=== PATIENT | female | born 1960 ===

== ENCOUNTER 2018-02-06 14:04 | Inpatient (IN) | payer MEDICAID ==
--- NOTE | 2018-02-06 15:13 | ED PDOC ---
Arrival/HPI - General Chief Complaint: Lower Extremity Problem/Injury Time Seen by Provider: 02/06/18 14:40 Historian: Patient - History of Present Illness Narrative History of Present Illness (Text): 02/06/18 15:07 57 y/o female with PMH of HTN, COPD, chronic back pain, HIV, and Thyroid CA who presents to the ED c/o intermittent leg cramping x 2 weeks. Pt states she has been experiencing cramping in her lower extremities 2-3 times a week only at night, relieved by hot water soaks. Cramping starts in feet and moves upwards ending in the buttock. Pain is unilateral but alternates sides. Pt takes Flexeril and Percocet for her back pain, neither of which relieve her leg cramping. 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 She admits to decreased urine output and lightheadedness over the last few days. She has bilateral ankle swelling that she states is her baseline after cancer treatment. Pt not currently being treated for cancer. Denies fever, chills, increased SOB, chest pain, abdominal pain, N/V, diarrhea, headache, frequency, dysuria, hematuria. Symptom Onset: Gradual Symptom Course: Worsening Quality: Cramping Past Medical History - Provider Review Nursing Documentation Reviewed: Yes - Infectious Disease Hx of Infectious Diseases: None - Tetanus Immunization Tetanus Immunization: Unknown - Reproductive Menopause: Yes - Cardiac Hx Hypertension: Yes - Pulmonary Hx Asthma: Yes Hx Chronic Obstructive Pulmonary Disease (COPD): Yes - Neurological Hx Neurological Disorder: No - HEENT Hx HEENT Disorder: No - Renal Hx Renal Disorder: No - Endocrine/Metabolic Hx Hypothyroidism: Yes - Hematological/Oncological Hx AIDS: Yes Hx Cancer: Yes (thyroid) - Integumentary Hx Dermatological Disorder: No - Musculoskeletal/Rheumatological Hx Musculoskeletal Disorders: No - Gastrointestinal Hx Gastrointestinal Disorders: No - Genitourinary/Gynecological Hx Genitourinary Disorders: No - Psychiatric Hx Psychophysiologic Disorder: No Hx Substance Use: No - Surgical History Hx Appendectomy: Yes Hx Section: Yes Hx Gastric Bypass Surgery: Yes (sleeve) Hx Musculoskeletal Surgery: Yes (lamenectomy and fusion) Hx Thyroidectomy: Yes - Anesthesia Hx Anesthesia: Yes Hx Anesthesia Reactions: No Hx Malignant Hyperthermia: No - Suicidal Assessment Feels Threatened In Home Enviroment: No Family/Social History - Physician Review Nursing Documentation Reviewed: Yes Family/Social History: Unknown Family HX Smoking Status: Former Smoker Hx Alcohol Use: No Hx Substance Use: No Hx Substance Use Treatment: No Allergies/Home Meds Allergies/Adverse Reactions: Allergies EGG Allergy (Verified 02/06/18 14:28) ANAPHYLAXIS Home Medications: Home Meds Medication Instructions Recorded Confirmed Cyclobenzaprine HCl [Flexeril] 1 tab PO DAILY 08/15/14 02/06/18 Efavirenz/Emtricitab/Tenofovir 1 tab PO DAILY 08/15/14 02/06/18 [Atripla 600 mg-200 mg-300 mg] Fluticasone Propionate 1 puff INH DAILY 08/03/15 02/06/18 [Fluticasone Propionate] Levothyroxine Sodium 375 mcg PO DAILY 08/03/15 02/06/18 [Levothyroxine Sodium] Cyclobenzaprine [Flexeril] 10 mg PO DAILY 09/21/15 02/06/18 Efavirenz/Emtricitab/Tenofovir 1 tab PO DAILY 09/21/15 02/06/18 [Atripla Tablet] Levothyroxine [Synthroid] 125 mcg PO DAILY 09/21/15 02/06/18 Meloxicam [Mobic] 15 mg PO DAILY 09/21/15 02/06/18 Montelukast [Singulair] 10 mg PO DAILY 09/21/15 02/06/18 Oxycodone HCl/Acetaminophen 1 tab PO Q6H PRN 09/21/15 02/06/18 [Oxycodone-Acetaminophen 5-325] Pantoprazole [Protonix EC Tab] 40 mg PO DAILY 09/21/15 02/06/18 amLODIPine [Norvasc] 5 mg PO DAILY 09/21/15 02/06/18 Review of Systems - Physician Review All systems were reviewed & negative as marked: Yes - Review of Systems Constitutional: Normal. absent: Fevers Eyes: Normal. absent: Vision Changes ENT: Normal. absent: Sore Throat, Rhinorrhea, Sinus Congestion Respiratory: Normal, SOB (COPD pt, mild SOB at baseline), Cough (COPD pt, intermittent coughing at baseline). absent: Sputum Cardiovascular: Normal, Edema (bilateral lower leg edema), Calf Pain ( intermittent cramping calf pain), Orthopnea (COPD pt, orthopnea at baseline). absent: Chest Pain, Palpitations, Syncope Gastrointestinal: Normal. absent: Abdominal Pain, Nausea, Vomiting Genitourinary Female: Normal, Urine Output Changes (decreased). absent: Dysuria , Frequency, Hematuria Musculoskeletal: Back Pain (s/p injury 2004), Neck Pain (s/p injury 2004), Myalgias (intermittent in feet, calves, thighs, and buttock). absent: Arthralgias, Joint Swelling Skin: Normal. absent: Rash, Skin Lesions, Abscess, Cellulitis Neurological: Normal, Dizziness (lightheadedness). absent: Headache, Focal Weakness, Speech Changes, Disequilibrium Physical Exam Vital Signs Reviewed: Yes Vital Signs Temp Pulse Resp BP Pulse Ox 02/06/18 14:05 98.7 F 81 18 122/55 L 100 Temperature: Afebrile Blood Pressure: Normal Pulse: Regular Respiratory Rate: Normal Appearance: Positive for: Well-Appearing, Non-Toxic, Comfortable Pain Distress: None Mental Status: Positive for: Alert and Oriented X 3 - Systems Exam Head: Present: Atraumatic, Normocephalic Conjunctiva: Present: Normal Mouth: Present: Dry Respiratory/Chest: Present: Decreased Breath Sounds, Rhonchi. No: Respiratory Distress, Accessory Muscle Use, Wheezes, Rales Cardiovascular: Present: Regular Rate and Rhythm, Normal S1, S2, Peripheal Pulses Present. No: Murmurs Abdomen: Present: Normal Bowel Sounds. No: Tenderness, Distention, Peritoneal Signs Rectal: Present: Occult Blood, Normal Rectal Tone. No: Rectal Tenderness, Gross Blood, Hemorrhoids, Fissures, Nodule/Mass/Lesions Back: No: CVA Tenderness Upper Extremity: Present: NORMAL PULSES, Capillary Refill < 2s Lower Extremity: Present: Edema, CALF TENDERNESS (mild right-sided calf tenderness), NORMAL PULSES, Normal ROM, Tenderness (tenderness over left anterior distal tibia ), Swelling (bilateral edema in feet and lower legs), Capillary Refill < 2 s. No: Cyanosis, Genet's Sign, Erythema, Deformity, Temperature Abnormalties Neurological: Present: GCS=15 Skin: Present: Warm, Dry, Normal Color. No: Rashes Psychiatric: Present: Alert, Oriented x 3, Normal Insight, Normal Concentration Medical Decision Making ED Course and Treatment: 02/06/18 15:19 57 y/o female with PMH of HTN, COPD, chronic back pain, and Thyroid CA who presents to the ED c/o intermittent leg cramping x 2 weeks. Pt states she has been experiencing cramping in her lower extremities 2-3 times a week only at night, relieved by hot water soaks. Cramping starts in feet and moves upwards ending in the buttock. Pain is unilateral but alternates sides. 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 She admits to decreased urine output over the last few days. She has bilateral ankle swelling that she states is her baseline after cancer treatment. Denies fever, chills, increased SOB, chest pain, abdominal pain, N/V, diarrhea, headache, frequency, dysuria, hematuria. Physical exam reveals normal vitals; bilateral lower leg edema; right calf tenderness; tenderness over left distal tibia; lungs clear; no abdominal tenderness. Will get labs (CBC, CMP, UA + culture) Will get US b/l lower extremities to r/o DVT 02/06/18 17:43 CBC significant for: YARELY (Creat 1.7, BUN 35) low hemoglobin (9.8) - guiac positive stool UA positive for trace leuk esterase and WBC -will treat with 1g Rocephin IV CMP shows: low potassium (2.9) -will give 40mg potassium chloride PO US results pending. Case discussed with Dr. Willson, who recommends admit for observation to med/ surg with diagnosis of hypokalemia and renal insufficiency for rehydration and monitoring of kidney function. Spoke with hospitalist Dr. Gianluca Robison who accepted the admission to med/surg observation Re-evaluation Time: 18:09 Reassessment Condition: Unchanged - Lab Interpretations Lab Results: 02/06/18 15:17 02/06/18 15:17 Lab Results 02/06/18 15:20: Urine Color Yellow, Urine Appearance Sl cloudy, Urine pH 6.5, Ur Specific [place] 1.015, Urine Protein Trace H, Urine Glucose (UA) Negative, Urine Ketones Negative, Urine Blood Negative, Urine Nitrate Negative, Urine Bilirubin Negative, Urine Urobilinogen 0.2, Ur Leukocyte Esterase Trace H, Urine RBC Negative, Urine WBC 15 - 20, Ur Epithelial Cells 10 - 12, Urine Bacteria Mod, Hyaline Casts 2 - 5, Coarse Granular Casts Small H 02/06/18 15:17: TSH 3rd Generation 0.05 L 02/06/18 15:17: Sodium 137, Potassium 2.9 L*, Chloride 90 L, Carbon Dioxide 37 H , Anion Gap 13, BUN 35 H, Creatinine 1.7 H, Est GFR ( Amer) 38, Est GFR ( Non-Af Amer) 31, Random Glucose 101, Calcium 7.6 L, Total Bilirubin 0.5, AST 34 , ALT 20, Alkaline Phosphatase 63, Total Creatine Kinase 97, Total Protein 8.0, Albumin 4.3, Globulin 3.7, Albumin/Globulin Ratio 1.1 02/06/18 15:17: WBC 8.2, RBC 3.76, Hgb 9.8 L, Hct 30.7 L, MCV 81.6, MCH 26.1, MCHC 31.9, RDW 13.7, Plt Count 413, MPV 9.6, Gran % 77.9 H, Lymph % (Auto) 10.0 L, [place] % (Auto) 10.1 H, Eos % (Auto) 1.3 L, Baso % (Auto) 0.7, Gran # 6.37, Lymph # (Auto) 0.8 L, [place] # (Auto) 0.8 H, Eos # (Auto) 0.1, Baso # (Auto) 0.06 - RAD Interpretation Radiology Orders: 02/06/18 15:13 DUPLEX LOWER EXTRM VEIN BILAT [US] Stat - Medication Orders Current Medication Orders: Discontinued Medications Sodium Chloride (Sodium Chloride 0.9%) 1,000 mls @ 999 mls/hr IV .Q1H1M STA Stop: 02/06/18 18:01 Last Admin: 02/06/18 17:22 Dose: 999 mls/hr eMAR Start Stop Document 02/06/18 17:22 EQ (Rec: 02/06/18 17:22 EQ [id number]) Intravenous Solution Start Date 02/06/18 Start Time 17:22 Ceftriaxone Sodium (Rocephin 1 Gram Ivpb) 1 gm in 100 mls @ 100 mls/hr IVPB STAT STA PRN Reason: Protocol Stop: 02/06/18 18:49 Last Admin: 02/06/18 18:26 Dose: 100 mls/hr eMAR Start Stop Document 02/06/18 18:26 EQ (Rec: 02/06/18 18:26 EQ [id number]) Intravenous Solution Start Date 02/06/18 Start Time 18:26 Potassium Chloride (K-Dur 20 Meq Er Tab) 40 meq PO STAT STA Stop: 02/06/18 16:30 Last Admin: 02/06/18 16:46 Dose: 40 meq Potassium Chloride (K-Dur 20 Meq Er Tab) 40 meq PO STAT STA Stop: 02/06/18 18:33 Last Admin: 02/06/18 18:57 Dose: 40 meq Disposition/Present on Arrival - Present on Arrival Any Indicators Present on Arrival: No History of DVT/PE: No History of Uncontrolled Diabetes: No Urinary Catheter: No History of Decub. Ulcer: No History Surgical Site Infection Following: None - Disposition Have Diagnosis and Disposition been Completed?: Yes Diagnosis: Renal insufficiency, Hypokalemia, UTI (urinary tract infection) Disposition: HOSPITALIZED Disposition Time: 18:00 Patient Plan: Observation Patient Problems: Current Active Problems Problem Status Onset Renal insufficiency Acute Hypokalemia Acute UTI (urinary tract infection) Acute Condition: GOOD
[2018-02-06 15:32] LABS: BASO # 0.06 K/mm3 (0.0-2.0); BASO % 0.7 % (0.0-3.0); EOS # 0.1 (0.0-0.7); EOS % 1.3 % (1.5-5.0); GRAN # 6.37 (1.4-6.5); GRAN % 77.9 % (50.0-68.0); HEMOGLOBIN 9.8 g/dL (12.0-16.0); LYMPH # 0.8 (1.2-3.4); MEAN CELL VOLUME 81.6 fl (80.0-105.0); MEAN CORPUSCULAR HEMOGLOBIN 26.1 pg (25.0-35.0); MEAN CORPUSCULAR HGB CONC 31.9 g/dl (31.0-37.0); MEAN PLATELET VOLUME 9.6 fl (7.0-11.0); MONO # 0.8 (0.1-0.6); MONO % 10.1 % (1.0-6.0); RBC 3.76 10^6/uL (3.5-6.1); RED CELL DISTRIBUTION WIDTH 13.7 % (11.5-14.5); WHITE BLOOD COUNT 8.2 10^3/ul (4.5-11.0)
[2018-02-06 15:45] LABS: PH,URINE 6.5 (4.7-8.0); URINE BILIRUBIN NEGATIVE (NEGATIVE); URINE BLOOD NEGATIVE (NEGATIVE); URINE GLUCOSE (UA) NEGATIVE (NEGATIVE); URINE LEUKOCYTE ESTERASE TRACE Leu/uL (NEGATIVE); URINE PROTEIN TRACE mg/dL (<30 mg/dL); URINE UROBILINOGEN 0.2 E.U./dL (<1 E.U./dL)
[2018-02-06 15:48] LABS: URINE COLOR YELLOW (YELLOW)
[2018-02-06 15:57] LABS: URINE APPEARANCE SL CLOUDY (CLEAR); URINE RBC NEGATIVE /hpf (0-2)
[2018-02-06 15:58] LABS: URINE BACTERIA MOD (NEG); URINE COARSE GRANULAR CAST SMALL /hpf (0-2); URINE WBC 15 - 20 /hpf (0-6)
[2018-02-06 16:14] LABS: ALB/GLOB RATIO 1.1 (1.1-1.8); ALBUMIN 4.3 g/dL (3.0-4.8); CALCIUM 7.6 mg/dL (8.4-10.5)
[2018-02-06] MEDS ORDERED: Potassium Chloride 20 mEq ER Tab PO STA ×2 (16:29→18:32)
[2018-02-06] MEDS ORDERED: Sodium Chloride 0.9% 1,000 ML IV STA (17:01)
[2018-02-06] MEDS ORDERED: cefTRIAXone 1 gm 1 GM/100 ML BAG IVPB STA (17:50)
[2018-02-06] MEDS ORDERED: Albuterol-Ipratrop 3 mg / 0.5 (3 ml) UD IH PRN (20:51)
[2018-02-06] MEDS: Sodium Chloride 0.9% 1,000 ML IV SCH (21:14)
[2018-02-06 21:32] LABS: FREE T4 2.87 ng/dL (0.78-2.19); T4 13.9 ug/dL (5.5-11.0)
[2018-02-06 22:51] VITALS: BMI 24.9
[2018-02-06] MEDS ORDERED: Fluticasone-Salmeterol 250-50mcg Diskus IH SCH (23:00)
[2018-02-06] MEDS ORDERED: Budesonide 0.5 mg/2 ml Inhal Susp UD IH ONE (23:15)
[2018-02-06] MEDS ORDERED: Arformoterol 15 mcg/2 ml Inh Sol IH ONE (23:15)
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
[2018-02-07 00:34] LABS: ALB/GLOB RATIO 1.1 (1.1-1.8); ALBUMIN 4.2 g/dL (3.0-4.8); CALCIUM 7.2 mg/dL (8.4-10.5)
--- NOTE | 2018-02-07 03:45 | CON ---
DATE: 02/06/2018 LOCATION: Room 566. HISTORY OF PRESENT ILLNESS: This is a 57-year-old female with known history of thyroid carcinoma on high-dose levothyroxine suppressive therapy, presenting here with lower extremity cramping and associated hypokalemia and is now being referred for endocrine evaluation and management. PAST MEDICAL HISTORY: As mentioned above, history of thyroid carcinoma with subsequent total thyroidectomy and has been on a high-dose levothyroxine suppressive therapy, currently on a 375 mcg dose once a day as noted. History of hypertension and dyslipidemia, history of chronic obstructive lung disease with prior history of nicotine dependence. History of lumbar disc disease and chronic low back pain, currently on narcotic analgesics and muscle relaxants given on the outpatient. She has previous laminectomy and lumbar fusion surgery a few years ago with persistent lower back pain as mentioned, history of HIV/AIDS, on antiretroviral therapy as noted. History of morbid obesity and underwent a sleeve gastrectomy also few years ago. PAST SURGICAL HISTORY: She also had previous appendectomy and C-sections as noted. FAMILY HISTORY: Positive for hypertension and heart disease. SOCIAL HISTORY: The patient has supportive family. Admits to previous history of smoking, but quit a few years ago. No other illicit drug use. REVIEW OF SYSTEMS: As mentioned above. Admits to generalized body weakness with episodic bouts of bifrontal headaches and progressive bouts of dizziness and lightheadedness worse on the day of admission. No chest pains, but admits to occasional bouts of palpitations and shortness of breath, especially on exertion. Her oral intake is variable with nausea and dyspepsia and vague abdominal pains. Also admits to severe low back pain with radiculopathy. Also admits to recent lower extremity cramping and leg pain, right greater than left with lower extremity edema which is actually of chronic nature. PHYSICAL EXAMINATION: GENERAL: This is an average built female in no apparent distress. VITAL SIGNS: Blood pressure of 140/80, pulse of 100 beats per minute regular, temperature 98, respirations 20, height is 5 feet 4 inches, weight is 145 pounds. HEENT: Head normocephalic. Eyes anicteric with pink conjunctivae. Funduscopy not possible at this time. Ears, nose and throat otherwise normal. NECK: Supple. The thyroid gland is not palpable with a flat thyroid bed and no palpable nodules. No cervical adenopathy as noted. CARDIOPULMONARY: Some adynamic precordium. S1, S2 is rapid and regular. LUNGS: Clear to auscultation. ABDOMEN: Flat, soft with positive bowel sounds. EXTREMITIES: +2 bipedal edema. Pulses are +2 bilaterally. LABORATORY DATA: Her chemistry showed a BUN of 35, sodium 137, potassium 2.9, chloride 90, CO2 of 37, glucose 101 and creatinine 1.7. Her T4 is 13.9 with a free T4 of 2.87 and TSH of 0.05. 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 The biggest concern also would be further long-term metabolic effects and there is high risk for osteoporosis from increased bone resorption as noted thereof. Also there is always a possibility of predisposing patients for cardiac tachyarrhythmias with over replacement of levothyroxine suppressive therapy. Plan of management, we will hold off the initiation of levothyroxine for few days as it takes 5-7 days for full therapeutic washout of the levothyroxine medications as given. We will obtain serial chemistries and serial thyroid studies and determine the need to resume her levothyroxine medications accordingly at clearly a much lower dosing regimen. We will obtain a thyroglobulin quantitative level as a followup thyroid cancer marker. We will also obtain serial chemistries and supplement accordingly as needed. We will follow. Fallon Gottlieb MD
[2018-02-07] MEDS ORDERED: Potassium Chloride 20 mEq ER Tab PO ONE ×3 (05:50→18:00)
[2018-02-07] MEDS ORDERED: Pantoprazole 20 mg EC Tab PO SCH (06:00)
[2018-02-07] MEDS: Sodium Chloride 0.9% 1,000 ML IV SCH (06:15)
[2018-02-07] MEDS: Arformoterol 15 mcg/2 ml Inh Sol IH SCH ×2 (07:37→19:22)
[2018-02-07] MEDS: Budesonide 0.5 mg/2 ml Inhal Susp UD IH SCH (07:37)
[2018-02-07] MEDS: Oxycodone/Acetaminophen 5/325 mg Tab PO PRN ×2 (07:48→23:14)
[2018-02-07 08:11] LABS: BASO # 0.04 K/mm3 (0.0-2.0); BASO % 0.6 % (0.0-3.0); EOS # 0.1 (0.0-0.7); EOS % 1.9 % (1.5-5.0); GRAN # 4.84 (1.4-6.5); GRAN % 70.2 % (50.0-68.0); HEMOGLOBIN 8.9 g/dL (12.0-16.0); LYMPH # 1.1 (1.2-3.4); LYMPH % 15.4 % (22.0-35.0); MEAN CELL VOLUME 82.2 fl (80.0-105.0); MEAN CORPUSCULAR HGB CONC 31.7 g/dl (31.0-37.0); MEAN PLATELET VOLUME 9.6 fl (7.0-11.0); MONO # 0.8 (0.1-0.6); MONO % 11.9 % (1.0-6.0); RBC 3.42 10^6/uL (3.5-6.1); RED CELL DISTRIBUTION WIDTH 13.9 % (11.5-14.5); WHITE BLOOD COUNT 6.9 10^3/ul (4.5-11.0)
[2018-02-07 08:34] LABS: ALB/GLOB RATIO 1.1 (1.1-1.8); ALBUMIN 3.4 g/dL (3.0-4.8); ALT/SGPT 21 U/L (7-56); AST/SGOT 27 U/L (14-36); BLOOD UREA NITROGEN 20 mg/dL (7-21); CALCIUM 6.5 mg/dL (8.4-10.5); GFR NON-AFRICAN AMERICAN 58
[2018-02-07 09:01] LABS: FREE T4 2.18 ng/dL (0.78-2.19); T4 11.7 ug/dL (5.5-11.0)
[2018-02-07] MEDS: Efavirenz/Emtricitabine/Teno 1 TAB PO SCH ×2 (09:32→09:41)
[2018-02-07] MEDS: Pantoprazole 40 mg EC Tab PO SCH ×2 (09:33→09:40)
[2018-02-07] MEDS ORDERED: Magnesium Sulfate 2 gm/50 ml 2 GM/50 ML BAG IVPB ONE (11:46)
--- NOTE | 2018-02-07 12:08 | US ---
HISTORY: Leg pain and swelling. Evaluate for DVT PHYSICIAN(S): Sp Austin MD. TECHNIQUE: Duplex sonography and color-flow Doppler with graded compression were used to evaluate the deep venous systems of both lower extremities. The exam is somewhat limited by edema FINDINGS: The visualized deep venous systems of both lower extremities are sonographically normal and compressible. Normal wave forms and augmentation are seen. There is no sonographic evidence for deep venous thrombosis in the visualized segments of both lower extremities. IMPRESSION: No sonographic evidence for deep venous thrombosis in the visualized segments of both lower extremities.
--- NOTE | 2018-02-07 12:28 | CP.PCM.PN ---
Subjective - Date & Time of Evaluation Date of Evaluation: 02/07/18 Time of Evaluation: 12:03 - Subjective Subjective: PGY-1 Progress Note For: Dr. Gottlieb Pt was seen and examined this AM at bedside. Pt continues to admit to cramping pain in the legs and hips b/l. She denies any confusion, fatigue, numbness, tingling, dysphagia, irritability, depression, tremors, coarse hair, brittle nails, or dry skin. She is tolerating her diet and denies any other acute complaints at this time. Objective - Vital Signs/Intake and Output Vital Signs (last 24 hours): Temp Pulse Resp BP Pulse Ox 98.3 F 88 20 125/85 99 02/07/18 08:00 02/07/18 09:32 02/07/18 08:00 02/07/18 09:32 02/07/18 08:00 Intake and Output: 02/07/18 02/07/18 06:59 18:59 Intake Total 1680 Balance 1680 - Medications Medications: Current Medications Albuterol/Ipratropium (Duoneb 3 Mg/0.5 Mg (3 Ml) Ud) 3 ml IH Q6 PRN PRN Reason: Shortness of Breath Amlodipine Besylate (Norvasc) 5 mg PO DAILY [facility] Last Admin: 02/07/18 09:32 Dose: 5 mg Arformoterol Tartrate (Brovana) 15 mcg IH [id number] [facility] Last Admin: 02/07/18 07:37 Dose: 15 mcg Budesonide (Pulmicort Respules) 0.5 mg IH [id number] [facility] [place] Last Admin: 02/07/18 07:37 Dose: 0.5 mg Calcium Carbonate (Caltrate) 600 mg PO DAILY [facility] [place] Last Admin: 02/07/18 09:32 Dose: 600 mg Cyclobenzaprine HCl (Flexeril) 10 mg PO DAILY [facility] [place] Last Admin: 02/07/18 09:33 Dose: 10 mg Efavirenz/Emtricitabine/Tenofovir (Atripla 600 Mg-200 Mg-300 Mg) 1 tab PO DAILY [facility] PRN Reason: Protocol Last Admin: 02/07/18 09:41 Dose: Not Given Heparin Sodium (Porcine) (Heparin) 5,000 units SC Q12 CAROLYN PRN Reason: Protocol Last Admin: 02/07/18 09:41 Dose: Not Given Potassium Chloride 40 meq/ (Sodium Chloride) 1,020 mls @ 100 mls/hr IV .[id number] [facility] Last Admin: 02/07/18 09:13 Dose: 100 mls/hr Magnesium Sulfate (Magnesium Sulfate 2 Gm/50 Ml Water) 2 gm in 50 mls @ 50 mls/ hr IVPB ONCE ONE Stop: 02/07/18 12:45 Meloxicam (Mobic) 15 mg PO DAILY PRN PRN Reason: Pain, moderate (4-7) Montelukast Sodium (Singulair) 10 mg PO DAILY [facility] [place] Last Admin: 02/07/18 09:33 Dose: 10 mg Oxycodone/Acetaminophen (Percocet 5/325 Mg Tab) 1 tab PO Q6H PRN PRN Reason: Pain, moderate (4-7) Stop: 02/09/18 22:47 Last Admin: 02/07/18 07:48 Dose: 1 tab Pantoprazole Sodium (Protonix Ec Tab) 40 mg PO DAILY [facility] [place] Last Admin: 02/07/18 09:40 Dose: Not Given - Labs Labs: 02/07/18 07:30 02/07/18 07:30 - Constitutional Appears: Well, Non-toxic, No Acute Distress - Head Exam Head Exam: ATRAUMATIC, NORMAL INSPECTION, NORMOCEPHALIC - Eye Exam Eye Exam: EOMI, Normal appearance, PERRL - ENT Exam ENT Exam: Mucous Membranes Moist, Normal Exam - Respiratory Exam Respiratory Exam: Clear to Ausculation Bilateral, NORMAL BREATHING PATTERN. absent: Accessory Muscle Use, Decreased Breath Sounds, Rales, Rhonchi, Wheezes - Cardiovascular Exam Cardiovascular Exam: REGULAR RHYTHM, +S1, +S2. absent: Tachycardia - GI/Abdominal Exam GI & Abdominal Exam: Soft, Normal Bowel Sounds. absent: Distended, Firm, Guarding, Tenderness - Extremities Exam Extremities Exam: Full ROM, Normal Inspection. absent: Calf Tenderness, Pedal Edema Additional comments: [place] sign was negative, as was trousseau sign - Neurological Exam Neurological Exam: Alert, Awake, Oriented x3 - Psychiatric Exam Psychiatric exam: Normal Affect, Normal Mood - Skin Skin Exam: Dry, Intact, Normal Color, Warm Assessment and Plan - Assessment and Plan (Free Text) Assessment: Pt is a 57 yo F with pmhx of HIV, COPD, HTN, and thyroid ca s/p radiation treatment who we are consulted for hypocalcemia, thyroid function abnormalities and hx of thyroid ca. She is currently being supplemented with 600mg calcium gluconate, but her Ca levels dropped more to 6.5 from 7.2. Her TSH is also suppressed to .5 and T4 = 13.9. This is due to TSH suppresion in the presence of thyroid ca. - We will continue to hold off levothyroxine for a few days to allow some washout and begin pt on a slightly lower dose of levothyroxine. - Will continue to follow and replete Ca++ as needed - Will add calcitriol - Continue to monitor all electrolytes - Will continue to follow Discussed with Dr. Bull Green PGY1
[2018-02-07] MEDS ORDERED: Potassium Chloride 20 mEq ER Tab PO STA (13:26)
--- NOTE | 2018-02-07 16:38 | PN ---
DATE: 02/07/2018 ENDO FOLLOWUP NOTE LOCATION: In room 566. SUBJECTIVE: This is a 57-year-old female with known history of surgical hypothyroidism and possibly even hypoparathyroidism, presenting here with severe lower extremity cramping and was found to have marked hypokalemia and also hypocalcemia as noted thereof. She received her potassium and calcium supplementation as given dose parenterally and orally as noted thereof. Her latest chemistries today showed a BUN of , sodium 139, potassium 3, chloride 96, CO2 of 35, glucose 88 and creatinine 1. Her calcium level is now reported as 6.5 with an albumin level of 3.4 and a corrected calcium of 7.1 mg/dL. Her thyroxine value showed a T4 of 11.7 with a free T4 of 2.18 and a TSH of 0.08. Her serum cortisol level is 6.9 mcg/dL. ASSESSMENT: This is a 57-year-old female with symptomatic hypokalemia with associated history of hypertension and now supervening hyperthyroxinemia with possible high-dose levothyroxine replacement therapy. She also has moderate hypocalcemia related to possible surgical hypoparathyroidism and subsequent hypocalcemia as noted thereof. We will continue the calcium carbonate replacement therapy as given and we will also restart a much lower dose of levothyroxine as at least 200 mcg daily and we will titrate incrementally as indicated to optimize metabolic control. We will also continue the magnesium supplementation as given. Moreover, we will start her also on vitamin D analogues with calcitriol given as 0.5 mcg b.i.d. to start today as ordered. We will titrate incrementally as indicated to optimize metabolic control. She has been advised to follow up with her customer agent in the outpatient, Dr. Gary Mendoza, who is her local customer agent, who can further ascertain the exact dose adjustments. Especially with underlying thyroid cancer, we have to aim for suppressed TSH level to optimize the thyroid requirements and also to prevent further recurrence of the aforementioned cancer process. We will obtain serial chemistries and supplement accordingly as needed. We will follow. Fallon Gottlieb MD
[2018-02-07] MEDS: Magnesium Oxide 400 mg Tab UD PO SCH (17:38)
--- NOTE | 2018-02-07 17:56 | CP.PCM.PN ---
<Paul Godwin - Last Filed: 02/07/18 17:53> Subjective - Date & Time of Evaluation Date of Evaluation: 02/07/18 Time of Evaluation: 07:00 - Subjective Subjective: Paul Godwin, PGY1 Medicine Progress Note for Dr. Landeros Patient was seen and examined at bedside this morning. She was complaining of bilateral headaches and lower extremity muscle cramps that were worsening. She says that she usually drinks 1 L water a day but doesn't hydrate well at work. Denies n/v/d, numbness and tingling of the extremities. Vital signs are stable. A full 12 point ROS was conducted and unremarkable except as stated above. Objective - Vital Signs/Intake and Output Vital Signs (last 24 hours): Temp Pulse Resp BP Pulse Ox 97.5 F L 83 20 115/64 99 02/07/18 14:41 02/07/18 14:41 02/07/18 14:41 02/07/18 14:41 02/07/18 14:41 Intake and Output: 02/07/18 02/07/18 06:59 18:59 Intake Total 1680 600 Balance 1680 600 - Medications Medications: Current Medications Albuterol/Ipratropium (Duoneb 3 Mg/0.5 Mg (3 Ml) Ud) 3 ml IH Q6 PRN PRN Reason: Shortness of Breath Amlodipine Besylate (Norvasc) 10 mg PO DAILY [facility] Arformoterol Tartrate (Brovana) 15 mcg IH [id number] [facility] Last Admin: 02/07/18 07:37 Dose: 15 mcg Budesonide (Pulmicort Respules) 0.5 mg IH [id number] [facility] Last Admin: 02/07/18 07:37 Dose: 0.5 mg Calcitriol (Rocaltrol) 0.5 mcg PO BID [facility] Last Admin: 02/07/18 17:38 Dose: 0.5 mcg Calcium Carbonate (Caltrate) 600 mg PO DAILY [facility] Last Admin: 02/07/18 09:32 Dose: 600 mg Cyclobenzaprine HCl (Flexeril) 10 mg PO DAILY [facility] Last Admin: 02/07/18 09:33 Dose: 10 mg Diphenhydramine HCl (Benadryl) 50 mg PO HS PRN PRN Reason: Insomnia Heparin Sodium (Porcine) (Heparin) 5,000 units SC Q12 CAROLYN PRN Reason: Protocol Last Admin: 02/07/18 09:41 Dose: Not Given Home Med (Home Med) 1 unit PO DAILY [facility] Potassium Chloride 40 meq/ (Sodium Chloride) 1,020 mls @ 100 mls/hr IV .[id number] [facility] Last Admin: 02/07/18 09:13 Dose: 100 mls/hr Levothyroxine Sodium (Synthroid) 200 mcg PO 0600 [facility] Magnesium Oxide (Mag-Ox) 400 mg PO BID [facility] Last Admin: 02/07/18 17:38 Dose: 400 mg Meloxicam (Mobic) 15 mg PO DAILY PRN PRN Reason: Pain, moderate (4-7) Montelukast Sodium (Singulair) 10 mg PO DAILY [facility] Last Admin: 02/07/18 09:33 Dose: 10 mg Oxycodone/Acetaminophen (Percocet 5/325 Mg Tab) 1 tab PO Q6H PRN PRN Reason: Pain, moderate (4-7) Stop: 02/09/18 22:47 Last Admin: 02/07/18 07:48 Dose: 1 tab Pantoprazole Sodium (Protonix Ec Tab) 40 mg PO DAILY [facility] Last Admin: 02/07/18 09:40 Dose: Not Given Potassium Chloride (K-Dur 20 Meq Er Tab) 20 meq PO ONCE ONE Stop: 02/07/18 18:01 Last Admin: 02/07/18 17:38 Dose: 20 meq - Labs Labs: 02/07/18 07:30 02/07/18 07:30 - Constitutional Appears: Well, No Acute Distress - Head Exam Head Exam: ATRAUMATIC, NORMAL INSPECTION, NORMOCEPHALIC - Eye Exam Eye Exam: EOMI, Normal appearance, PERRL - ENT Exam ENT Exam: Mucous Membranes Moist, Normal Exam - Neck Exam Neck Exam: Full ROM, Normal Inspection. absent: Lymphadenopathy - Respiratory Exam Respiratory Exam: Clear to Ausculation Bilateral, NORMAL BREATHING PATTERN. absent: Rales, Rhonchi, Wheezes, Respiratory Distress - Cardiovascular Exam Cardiovascular Exam: REGULAR RHYTHM, +S1, +S2. absent: Murmur - GI/Abdominal Exam GI & Abdominal Exam: Soft, Normal Bowel Sounds. absent: Tenderness - Extremities Exam Extremities Exam: Full ROM, Normal Capillary Refill, Normal Inspection. absent : Joint Swelling, Pedal Edema - Back Exam Back Exam: NORMAL INSPECTION - Neurological Exam Neurological Exam: Alert, Awake, CN II-XII Intact, Normal Gait, Oriented x3 Neuro motor strength exam: Left Upper Extremity: 5, Right Upper Extremity: 5, Left Lower Extremity: 5, Right Lower Extremity: 5 - Psychiatric Exam Psychiatric exam: Normal Affect, Normal Mood - Skin Skin Exam: Dry, Intact, Normal Color, Warm Assessment and Plan - Assessment and Plan (Free Text) Assessment: Patient is a 57 year old female with PMH of HIV (CD4 count in the 500s as per patient), COPD, HTN, chronic back pain, thyroid cancer (s/p radiation therapy on 12/01/17) presenting to the ED for bilateral leg cramping. Patient was admitted to med/surg for electrolyte abnormalities, YARELY, and abnormal thyroid levels. Plan: LE muscle cramps likely 2/2 electrolyte abnormalities -K is now 2.7; repleted -Ca is now 6.5; repleted -Mg is now 1.4; repleted -K of 2.9 on admission, given 80mEQ KCl in ED. -urine aldosterone, plasma aldosterone/renin pending -continue NS @ 100cc/hr -LE duplex negative for DVT -EKG: NSR. No acute ST or T wave changes. Surgical Hypothyroidism with Possible Surgical Hypoparathyroidism -Spoke to patient's environmental protection forester (Dr. Gary Olivares): recommendations were to c /w Levothyroxin at 200 mcg daily. -Hypocalcemia related to loss of parathyroid glands; replete Ca++ as needed -s/p radiation ablation 131 therapy on 12/01/17 -elevated T4, low TSH. -Endo on consult, Dr. Gottlieb. Appreciated Recs. -cortisol, PTH, ACTH, thyroglobulin pending -thyroid nuclear scan on 11/26/17 showed no findings to suggest metastatic disease YARELY - improving -Trending downwards, now BUN/Cr is 26/1.3 -likely 2/2 dehydration and low volume. BUN/Cr >20:1 -continue NS @ 100cc/hr Normocytic Anemia -Hg of 9.8 on admission, baseline of 11 -will monitor -No active bleeding History of HIV -follows Dr. Willard. Last seen two months, will see later this month -Per patient, viral load is undetectable and CD4 is in the 500s -YARELY likely not 2/2 HIV nephropathy but need records from Dr. Willard's office to definitively rule out -currently triple therapy HIV treatment Chronic Back pain -continue home pain meds COPD -continue binta wright singulair HTN -currently normotensive -continue home norvasc PPX with heparin and protonix Dispo: Continue to monitor patient on the floor. Case was discussed and reviewed with Attending Physician, Dr. Landeros. <Wayne Landeros - Last Filed: 02/10/18 07:49> Objective - Vital Signs/Intake and Output Vital Signs (last 24 hours): Temp Pulse Resp BP Pulse Ox 98.8 F 88 18 122/70 97 02/09/18 14:00 02/09/18 14:00 02/09/18 14:00 02/09/18 15:26 02/09/18 14:00 Intake and Output: 02/10/18 02/10/18 06:59 18:59 Intake Total 420 Balance 420 - Labs Labs: 02/09/18 06:30 02/09/18 06:30 Attending/Attestation - Attestation I have personally seen and examined this patient.: Yes I have fully participated in the care of the patient.: Yes I have reviewed all pertinent clinical information, including history, physical exam and plan: Yes Notes (Text): 02/10/18 07:45 Attending note; Patient seen and examined with resident. Patient is complaining of leg cramps. Denies any fevers, chills. Denies any nausea, vomiting. Denies any chest pain, shortness of breath. Tolerating diet well. Patient is a 57 year old female with PMH of HIV (CD4 count in the 500s as per patient), COPD, HTN, chronic back pain, thyroid cancer (s/p radiation therapy on 12/01/17), on Synthroid is admitted with bilateral leg cramping. Patient is admitted for severe hypokalemia, hypomagnesemia and hypocalcemia. Hypokalemia; started on IV and po potassium supplementation. Hypomagnesemia; continue IV magnesium. Hypocalcemia; continue IV calcium gluconate. Mostly electrolyte abnormalities associated post thyroid surgery. Patient is also getting radioactive iodine treatment with endocrinology. Case discussed with Dr. shane in detail. Continue Synthroid. Continue electrolyte supplementation. HIV; continue genvoya. Follow-up with Dr. Baxter as outpatient. Upon discharge the patient will follow-up with PMD DR. Chandra.
[2018-02-08] MEDS: Levothyroxine 200 MCG TAB PO SCH (06:23)
[2018-02-08] MEDS: Budesonide 0.5 mg/2 ml Inhal Susp UD IH SCH ×2 (07:15→19:08)
[2018-02-08] MEDS: Arformoterol 15 mcg/2 ml Inh Sol IH SCH ×2 (07:15→19:07)
[2018-02-08 07:18] LABS: BASO # 0.06 K/mm3 (0.0-2.0); EOS # 0.2 (0.0-0.7); EOS % 2.9 % (1.5-5.0); GRAN # 4.08 (1.4-6.5); GRAN % 68.5 % (50.0-68.0); HEMOGLOBIN 8.4 g/dL (12.0-16.0); LYMPH # 1.1 (1.2-3.4); LYMPH % 19.2 % (22.0-35.0); MEAN CELL VOLUME 83.6 fl (80.0-105.0); MEAN CORPUSCULAR HEMOGLOBIN 25.9 pg (25.0-35.0); MEAN PLATELET VOLUME 9.9 fl (7.0-11.0); MONO # 0.5 (0.1-0.6); MONO % 8.4 % (1.0-6.0); RBC 3.24 10^6/uL (3.5-6.1); RED CELL DISTRIBUTION WIDTH 14.1 % (11.5-14.5)
[2018-02-08 07:35] LABS: ALBUMIN 3.2 g/dL (3.0-4.8); ALT/SGPT 19 U/L (7-56); AST/SGOT 20 U/L (14-36); BLOOD UREA NITROGEN 14 mg/dL (7-21); GFR NON-AFRICAN AMERICAN > 60
[2018-02-08] MEDS ORDERED: Potassium Chloride 20 mEq ER Tab PO ONE ×2 (09:15→11:46)
[2018-02-08] MEDS: Magnesium Oxide 400 mg Tab UD PO SCH ×3 (09:22→17:15)
[2018-02-08] MEDS: Pantoprazole 40 mg EC Tab PO SCH (09:23)
[2018-02-08] MEDS: GENVOYA PO SCH ×2 (09:27→09:41)
[2018-02-08] MEDS ORDERED: GENVOYA PO SCH (10:00)
[2018-02-08] MEDS ORDERED: Home Med 1 UNIT PO SCH (10:00)
--- NOTE | 2018-02-08 11:24 | CP.PCM.PN ---
Subjective - Date & Time of Evaluation Date of Evaluation: 02/08/18 Time of Evaluation: 11:17 - Subjective Subjective: PGY 1 Progress Note For: Dr. Gottlieb Pt was seen and examined this morning at bedside. She denies any acute overnight events. She states that the cramping in her legs and hips have improved, and she has not had one since yesterday. She also continues to deny any fatigue, numbness, tingling, dysphagia, irritability, depression, tremors, brittle nails or dry skin. She is tolerating her diet, and is currently denying any acute complaints at this time. Objective - Vital Signs/Intake and Output Vital Signs (last 24 hours): Temp Pulse Resp BP Pulse Ox 98 F 88 20 107/65 97 02/08/18 07:00 02/08/18 07:00 02/08/18 07:00 02/08/18 09:20 02/08/18 07:00 - Medications Medications: Current Medications Albuterol/Ipratropium (Duoneb 3 Mg/0.5 Mg (3 Ml) Ud) 3 ml IH Q6 PRN PRN Reason: Shortness of Breath Amlodipine Besylate (Norvasc) 10 mg PO DAILY [facility] Last Admin: 02/08/18 09:20 Dose: 10 mg Arformoterol Tartrate (Brovana) 15 mcg IH [id number] [facility] Last Admin: 02/08/18 07:15 Dose: 15 mcg Budesonide (Pulmicort Respules) 0.5 mg IH [id number] [facility] Last Admin: 02/08/18 07:15 Dose: 0.5 mg Calcitriol (Rocaltrol) 0.5 mcg PO BID [facility] Last Admin: 02/08/18 09:20 Dose: 0.5 mcg Calcium Carbonate (Caltrate) 600 mg PO DAILY [facility] Last Admin: 02/08/18 09:20 Dose: 600 mg Cyclobenzaprine HCl (Flexeril) 10 mg PO DAILY [facility] Last Admin: 02/08/18 09:20 Dose: 10 mg Diphenhydramine HCl (Benadryl) 50 mg PO HS PRN PRN Reason: Insomnia Last Admin: 02/08/18 00:26 Dose: 50 mg Heparin Sodium (Porcine) (Heparin) 5,000 units SC Q12 CAROLYN PRN Reason: Protocol Last Admin: 02/08/18 09:23 Dose: Not Given Home Med (Home Med) 1 unit PO DAILY [facility] Last Admin: 02/08/18 09:41 Dose: 1 unit Potassium Chloride 40 meq/Calcium Gluconate 2,000 mg/Sodium Chloride 1,040 mls @ 100 mls/hr IV .[id number] [facility] Levothyroxine Sodium (Synthroid) 200 mcg PO 0600 [facility] Last Admin: 02/08/18 06:23 Dose: 200 mcg Magnesium Oxide (Mag-Ox) 400 mg PO TID [facility] Meloxicam (Mobic) 15 mg PO DAILY PRN PRN Reason: Pain, moderate (4-7) Montelukast Sodium (Singulair) 10 mg PO DAILY [facility] Last Admin: 02/08/18 09:21 Dose: 10 mg Oxycodone/Acetaminophen (Percocet 5/325 Mg Tab) 1 tab PO Q6H PRN PRN Reason: Pain, moderate (4-7) Stop: 02/09/18 22:47 Last Admin: 02/07/18 23:14 Dose: 1 tab Pantoprazole Sodium (Protonix Ec Tab) 40 mg PO DAILY [facility] Last Admin: 02/08/18 09:23 Dose: Not Given - Constitutional Appears: Well, Non-toxic, No Acute Distress - Head Exam Head Exam: ATRAUMATIC, NORMAL INSPECTION, NORMOCEPHALIC - Eye Exam Eye Exam: EOMI, Normal appearance, PERRL - ENT Exam ENT Exam: Mucous Membranes Moist, Normal Exam - Respiratory Exam Respiratory Exam: Clear to Ausculation Bilateral, NORMAL BREATHING PATTERN. absent: Accessory Muscle Use, Rhonchi, Wheezes, Respiratory Distress - Cardiovascular Exam Cardiovascular Exam: REGULAR RHYTHM, +S1, +S2 - GI/Abdominal Exam GI & Abdominal Exam: Soft, Normal Bowel Sounds. absent: Firm, Guarding, Rigid, Tenderness - Extremities Exam Extremities Exam: Normal Inspection. absent: Calf Tenderness, Pedal Edema - Neurological Exam Neurological Exam: Alert, Awake, Normal Gait, Oriented x3 - Psychiatric Exam Psychiatric exam: Normal Affect, Normal Mood - Skin Skin Exam: Dry, Intact, Normal Color, Warm Assessment and Plan - Assessment and Plan (Free Text) Assessment: Pt is a 57 yo F with pmhx of HIV, COPD, HTN, and thyroid ca s/p radiation treatment who we are consulted for hypocalcemia, thyroid function abnormalities and hx of thyroid ca. She is currently being supplemented with 600mg calcium gluconate, but her Ca++ levels dropped again from 6.5 to 6.0. Her albumin is also slightly decreased to 3.2, bringing her corrected Ca to 6.6. We are repleting her Ca++ through PO and IV supplementation. Pt was also found, to have hypomagnesemia, which we are repleting. Her TSH is also suppressed to .5 and T4 = 13.9. This is due to TSH suppresion in the presence of thyroid ca. - Start on synthroid 200mcg - Will continue to follow TSH and T4 to ensure proper TSH suppression range - Will increase frequency of PO calcium to 2 pills BID - Supplement IVF with Ca as well. - Will continue to follow and replete Ca++ as needed - Cont calcitriol - Will increase frequency of Mag ox to 400 TID - Continue to monitor all electrolytes - Will continue to follow Discussed with Dr. Bull Green PGY 1
[2018-02-08] MEDS: SODIUM CHLORIDE 0.9% IV SCH ×2 (12:05→23:12)
[2018-02-08] MEDS: POTASSIUM CHLORIDE IV SCH ×2 (12:05→23:12)
[2018-02-08] MEDS: CALCIUM GLUCONATE IV SCH ×2 (12:05→23:12)
[2018-02-08] MEDS: Oxycodone/Acetaminophen 5/325 mg Tab PO PRN ×2 (15:00→22:48)
--- NOTE | 2018-02-08 15:55 | PN ---
DATE: 02/08/2018 ENDO FOLLOWUP NOTE LOCATION: In room 565. SUBJECTIVE: This is a 57-year-old female with surgical hypothyroidism and possibly also parathyroidism with persistent hypocalcemia and even lower calcium levels as noted today. She continues to have episodic bouts of lower extremity paresthesias and cramping as noted today and also overnight till the present time. Her repeat chemistries today showed a BUN of 14, sodium 139, potassium 3.4, chloride 101, CO2 of 34, glucose 84 and creatinine 0.7. Her calcium level is now 6 with an albumin level of 3.2 and a corrected calcium of 6.8 mg/dL. Her repeat thyroid study showed a T4 of 11.7 with a TSH of 0.08 and a free T4 of 2.18. Her serum cortisol level is 6.9 mcg/dL. So at this time, we will continue the Synthroid given as 200 mcg daily as ordered and we will titrate incrementally as indicated to optimize the maximal degree of TSH suppression required for optimal dosing of patients with thyroid carcinoma. We are awaiting the quantitative thyroglobulin levels at this time as they were sent to a reference lab as noted. This is a very good followup marker for patients with papillary thyroid carcinoma which the patient actually had as noted. She received radioactive iodine ablation on further inquiry and elucidation today at [facility]. The parathyroid hormone intact level is pending at this time. We will continue the calcitriol given as 0.5 mcg b.i.d. as ordered and also increase the calcium carbonate to 1200 mg p.o. b.i.d. as given. They will continue the calcium gluconate infusion today and overnight to at least improve her calcium levels to over 7 mg/dL to prevent symptomatic neurovascular symptoms as mentioned. We will obtain serial chemistries and supplement accordingly as needed. Fallon Gottlieb MD
--- NOTE | 2018-02-08 15:56 | CP.PCM.PN ---
<Paul Godwin - Last Filed: 02/08/18 15:46> Subjective - Date & Time of Evaluation Date of Evaluation: 02/08/18 Time of Evaluation: 07:00 - Subjective Subjective: Paul Godwin PGY1 Medicine Progress Note for Dr. Landeros Patient was seen and examined at bedside this morning. Patient is complaining of R-foot numbness and tingling, which is slightly improved from yesterday. She denies cp, sob, abdominal pain, n/v/d. No overnight changes. No fevers. A full 12 point ROS was conducted and unremarkable except as stated above. Objective - Vital Signs/Intake and Output Vital Signs (last 24 hours): Temp Pulse Resp BP Pulse Ox 98.3 F 86 20 120/75 98 02/08/18 14:00 02/08/18 14:00 02/08/18 14:00 02/08/18 14:00 02/08/18 14:00 Intake and Output: 02/08/18 02/08/18 06:59 18:59 Intake Total 600 Balance 600 - Medications Medications: Current Medications Albuterol/Ipratropium (Duoneb 3 Mg/0.5 Mg (3 Ml) Ud) 3 ml IH Q6 PRN PRN Reason: Shortness of Breath Amlodipine Besylate (Norvasc) 10 mg PO DAILY [facility] Last Admin: 02/08/18 09:20 Dose: 10 mg Arformoterol Tartrate (Brovana) 15 mcg IH [id number] [facility] Last Admin: 02/08/18 07:15 Dose: 15 mcg Budesonide (Pulmicort Respules) 0.5 mg IH [id number] [facility] Last Admin: 02/08/18 07:15 Dose: 0.5 mg Calcitriol (Rocaltrol) 0.5 mcg PO BID [facility] Last Admin: 02/08/18 09:20 Dose: 0.5 mcg Calcium Carbonate (Caltrate) 600 mg PO BID [facility] Cyclobenzaprine HCl (Flexeril) 10 mg PO DAILY [facility] Last Admin: 02/08/18 09:20 Dose: 10 mg Diphenhydramine HCl (Benadryl) 50 mg PO HS PRN PRN Reason: Insomnia Last Admin: 02/08/18 00:26 Dose: 50 mg Heparin Sodium (Porcine) (Heparin) 5,000 units SC Q12 CAROLYN PRN Reason: Protocol Last Admin: 02/08/18 09:23 Dose: Not Given Home Med (Home Med) 1 unit PO DAILY [facility] Last Admin: 02/08/18 09:41 Dose: 1 unit Potassium Chloride 40 meq/Calcium Gluconate 2,000 mg/Sodium Chloride 1,040 mls @ 100 mls/hr IV .[id number] [facility] Last Admin: 02/08/18 12:05 Dose: 100 mls/hr Levothyroxine Sodium (Synthroid) 200 mcg PO 0600 [facility] Last Admin: 02/08/18 06:23 Dose: 200 mcg Magnesium Oxide (Mag-Ox) 400 mg PO TID [facility] Last Admin: 02/08/18 15:01 Dose: 400 mg Meloxicam (Mobic) 15 mg PO DAILY PRN PRN Reason: Pain, moderate (4-7) Montelukast Sodium (Singulair) 10 mg PO DAILY [facility] Last Admin: 02/08/18 09:21 Dose: 10 mg Oxycodone/Acetaminophen (Percocet 5/325 Mg Tab) 1 tab PO Q6H PRN PRN Reason: Pain, moderate (4-7) Stop: 02/09/18 22:47 Last Admin: 02/08/18 15:00 Dose: 1 tab Pantoprazole Sodium (Protonix Ec Tab) 40 mg PO DAILY [facility] Last Admin: 02/08/18 09:23 Dose: Not Given - Constitutional Appears: Well, No Acute Distress - Head Exam Head Exam: ATRAUMATIC, NORMAL INSPECTION, NORMOCEPHALIC - Eye Exam Eye Exam: EOMI, Normal appearance, PERRL - ENT Exam ENT Exam: Mucous Membranes Moist, Normal Exam - Neck Exam Neck Exam: Full ROM, Normal Inspection. absent: Lymphadenopathy - Respiratory Exam Respiratory Exam: Clear to Ausculation Bilateral, NORMAL BREATHING PATTERN. absent: Rales, Rhonchi, Wheezes, Respiratory Distress - Cardiovascular Exam Cardiovascular Exam: REGULAR RHYTHM, +S1, +S2. absent: Murmur - GI/Abdominal Exam GI & Abdominal Exam: Soft, Normal Bowel Sounds. absent: Tenderness - Extremities Exam Extremities Exam: Full ROM, Normal Capillary Refill, Normal Inspection. absent : Joint Swelling, Pedal Edema - Back Exam Back Exam: NORMAL INSPECTION - Neurological Exam Neurological Exam: Alert, Awake, Normal Gait, Oriented x3 Neuro motor strength exam: Left Upper Extremity: 5, Right Upper Extremity: 5, Left Lower Extremity: 5, Right Lower Extremity: 5 - Psychiatric Exam Psychiatric exam: Normal Affect, Normal Mood - Skin Skin Exam: Dry, Intact, Normal Color, Warm Assessment and Plan - Assessment and Plan (Free Text) Assessment: Patient is a 57 year old female with PMH of HIV (CD4 count in the 500s as per patient), COPD, HTN, chronic back pain, thyroid cancer (s/p radiation therapy on 12/01/17) presenting to the ED for bilateral leg cramping. Patient was admitted to med/surg for electrolyte abnormalities, YARELY, and abnormal thyroid levels. Plan: LE muscle cramps likely 2/2 electrolyte abnormalities - improving -K is now 3.4; repleted with KCl -Ca is now 6.0; repleted wth calcium gluconate -Mg is now 1.5; repleted with Magnesium oxide -urine aldosterone, plasma aldosterone/renin pending -c/w NS @ 100cc/hr -LE duplex negative for DVT -EKG: NSR. No acute ST or T wave changes. Surgical Hypothyroidism with Possible Surgical Hypoparathyroidism -Spoke to patient's wet pour supervisor (Dr. Gary Olivares): recommendations were to c /w Levothyroxin at 200 mcg daily. -Hypocalcemia related to loss of parathyroid glands; replete Ca++ as needed -s/p radiation ablation 131 therapy on 12/01/17 -elevated T4, low TSH. -Endo on consult, Dr. Gottlieb. Appreciated Recs. -negative morning cortisol -negative PTH -ACTH and thyroglobulin results pending -thyroid nuclear scan on 11/26/17 showed no findings to suggest metastatic disease Normocytic Anemia -Hg of 8.4 today; trending down -continue to monitor -No active bleeding YARELY - Resolved -Trending downwards, now BUN/Cr is 14/0.7 -likely 2/2 dehydration and low volume. -c/w fluids History of HIV -follows Dr. Willard. Last seen two months, will see later this month -Per patient, viral load is undetectable and CD4 is in the 500s -YARELY likely not 2/2 HIV nephropathy but need records from Dr. Willard's office to definitively rule out -currently triple therapy HIV treatment Chronic Back pain -continue home pain meds COPD -continue duonebs, brovana, singulair HTN -currently normotensive -continue home norvasc PPX with heparin and protonix Dispo: Continue to monitor patient on the floor. Continue to monitor electrolytes and replete as needed. Case was discussed and reviewed with Attending Physician, Dr. Landeros. <Wayne Landeros - Last Filed: 02/10/18 07:51> Objective - Vital Signs/Intake and Output Vital Signs (last 24 hours): Temp Pulse Resp BP Pulse Ox 98.8 F 88 18 122/70 97 02/09/18 14:00 02/09/18 14:00 02/09/18 14:00 02/09/18 15:26 02/09/18 14:00 Intake and Output: 02/10/18 02/10/18 06:59 18:59 Intake Total 420 Balance 420 - Labs Labs: 02/09/18 06:30 02/09/18 06:30 Attending/Attestation - Attestation I have personally seen and examined this patient.: Yes I have fully participated in the care of the patient.: Yes I have reviewed all pertinent clinical information, including history, physical exam and plan: Yes Notes (Text): 02/10/18 07:50 Attending note; Patient seen and examined with resident. Patient is complaining of leg cramps. Denies any fevers, chills. Denies any nausea, vomiting. Denies any chest pain, shortness of breath. Tolerating diet well. Patient is a 57 year old female with PMH of HIV (CD4 count in the 500s as per patient), COPD, HTN, chronic back pain, thyroid cancer (s/p radiation therapy on 12/01/17), on Synthroid is admitted with bilateral leg cramping. Patient is admitted for severe hypokalemia, hypomagnesemia and hypocalcemia. Hypokalemia; started on IV and po potassium supplementation. improving. Hypomagnesemia; continue IV magnesium.Improved. Hypocalcemia; continue IV calcium gluconate. Endocrinology evaluation with Dr. marion hunter. Continue Synthroid. Continue electrolyte supplementation. HIV; continue genvoya. Follow-up with Dr. Baxter as outpatient. Upon discharge the patient will follow-up with PMD DR. Chandra.
[2018-02-08 19:52] LABS: THYROGLOBULIN 1.7 ng/mL (2.8-40.9)
[2018-02-08 22:12] VITALS: RESP 18
[2018-02-09] MEDS: Levothyroxine 200 MCG TAB PO SCH (06:01)
[2018-02-09 07:10] LABS: BASO # 0.04 K/mm3 (0.0-2.0); BASO % 0.9 % (0.0-3.0); EOS # 0.2 (0.0-0.7); EOS % 4.5 % (1.5-5.0); GRAN # 2.63 (1.4-6.5); GRAN % 59.6 % (50.0-68.0); HEMOGLOBIN 8.5 g/dL (12.0-16.0); LYMPH # 1.1 (1.2-3.4); LYMPH % 25.3 % (22.0-35.0); MEAN CELL VOLUME 84.2 fl (80.0-105.0); MEAN CORPUSCULAR HEMOGLOBIN 26.3 pg (25.0-35.0); MEAN CORPUSCULAR HGB CONC 31.3 g/dl (31.0-37.0); MEAN PLATELET VOLUME 9.9 fl (7.0-11.0); MONO # 0.4 (0.1-0.6); MONO % 9.7 % (1.0-6.0); RBC 3.23 10^6/uL (3.5-6.1); RED CELL DISTRIBUTION WIDTH 13.9 % (11.5-14.5); WHITE BLOOD COUNT 4.4 10^3/ul (4.5-11.0)
[2018-02-09 07:25] LABS: ALB/GLOB RATIO 1.1 (1.1-1.8); ALBUMIN 3.1 g/dL (3.0-4.8); ALT/SGPT 19 U/L (7-56); AST/SGOT 20 U/L (14-36); BLOOD UREA NITROGEN 12 mg/dL (7-21); CALCIUM 7.2 mg/dL (8.4-10.5); GFR NON-AFRICAN AMERICAN > 60
[2018-02-09 07:28] LABS: T4 9.2 ug/dL (5.5-11.0)
[2018-02-09] MEDS: Oxycodone/Acetaminophen 5/325 mg Tab PO PRN (07:33)
[2018-02-09] MEDS: Budesonide 0.5 mg/2 ml Inhal Susp UD IH SCH ×2 (07:40→19:22)
[2018-02-09] MEDS: Arformoterol 15 mcg/2 ml Inh Sol IH SCH ×2 (07:40→19:22)
[2018-02-09] MEDS: Pantoprazole 40 mg EC Tab PO SCH (10:38)
[2018-02-09] MEDS: Magnesium Oxide 400 mg Tab UD PO SCH ×2 (10:38→15:26)
[2018-02-09] MEDS: GENVOYA PO SCH (10:39)
[2018-02-09] MEDS ORDERED: Potassium Chloride 20 mEq ER Tab PO ONE (11:05)
[2018-02-09] MEDS ORDERED: Magnesium Sulfate 2 gm/50 ml 2 GM/50 ML BAG IVPB ONE (11:06)
[2018-02-09 15:04] VITALS: BP 122/70; PULSE 88; TEMP 98.8; O2SAT 97
--- NOTE | 2018-02-09 16:04 | PN ---
DATE: 02/09/2018 ENDO FOLLOWUP NOTE LOCATION: In room 565. SUBJECTIVE: This is a 57-year-old female with recent admission for severe lower extremity cramping and is now improved clinically and metabolically as noted thereof. Her repeat thyroid studies showed a T4 of 9.2 with a TSH of 0.09, which is close to optimal in terms of her tolerance and metabolic profile. Her repeat chemistry showed a BUN of 12, sodium 139, potassium 3.5, chloride 101, CO2 of 36, glucose 93 and creatinine 0.7. Her calcium level today is 7.2 with an albumin of 3.1 and a corrected calcium of 8.1 mg/dL. Her thyroglobulin level was reported as 1.7, which is excellent and her parathyroid hormone intact level is 61, which is actually optimal and clearly we will negate the possibility of surgical hypoparathyroidism. The exact etiology of her recent hypocalcemia has yet to be determined. She has been advised because of the marked hypovitaminosis D to continue the outpatient vitamin D supplementation and would recommend calcitriol given as 0.5 mcg once daily as ordered. We have also increased the calcium carbonate to 1200 mg p.o. b.i.d. as ordered. She has been advised to follow with her isotope technologist, Dr. Mendoza for ongoing endocrine and thyroid evaluation and management. We will follow. Fallon Gottlieb MD
--- NOTE | 2018-02-09 16:16 | CP.PCM.DIS ---
<Paul Godwin - Last Filed: 02/09/18 16:20> Provider - Provider Date of Admission: 02/08/18 07:27 Attending physician: Wayne Landeros MD Consults: Endo: Dr. Schultz Time Spent in preparation of Discharge (in minutes): 40 Hospital Course - Lab Results Lab Results: Most Recent Lab Values WBC 4.4 10^3/ul (4.5-11.0) L D 02/09/18 06:30 RBC 3.23 10^6/uL (3.5-6.1) L 02/09/18 06:30 Hgb 8.5 g/dL (12.0-16.0) L 02/09/18 06:30 Hct 27.2 % (36.0-48.0) L 02/09/18 06:30 MCV 84.2 fl (80.0-105.0) 02/09/18 06:30 MCH 26.3 pg (25.0-35.0) 02/09/18 06:30 MCHC 31.3 g/dl (31.0-37.0) 02/09/18 06:30 RDW 13.9 % (11.5-14.5) 02/09/18 06:30 Plt Count 291 10^3/uL (120.0-450.0) 02/09/18 06:30 MPV 9.9 fl (7.0-11.0) 02/09/18 06:30 Gran % 59.6 % (50.0-68.0) 02/09/18 06:30 Lymph % (Auto) 25.3 % (22.0-35.0) 02/09/18 06:30 Coke % (Auto) 9.7 % (1.0-6.0) H 02/09/18 06:30 Eos % (Auto) 4.5 % (1.5-5.0) 02/09/18 06:30 Baso % (Auto) 0.9 % (0.0-3.0) 02/09/18 06:30 Gran # 2.63 (1.4-6.5) 02/09/18 06:30 Lymph # (Auto) 1.1 (1.2-3.4) L 02/09/18 06:30 Coke # (Auto) 0.4 (0.1-0.6) 02/09/18 06:30 Eos # (Auto) 0.2 (0.0-0.7) 02/09/18 06:30 Baso # (Auto) 0.04 K/mm3 (0.0-2.0) 02/09/18 06:30 Sodium 139 mmol/L (132-148) 02/09/18 06:30 Potassium 3.5 mmol/L (3.6-5.0) L 02/09/18 06:30 Chloride 101 mmol/L (98-107) 02/09/18 06:30 Carbon Dioxide 36 mmol/L (21-33) H 02/09/18 06:30 Anion Gap 6 (10-20) L 02/09/18 06:30 BUN 12 mg/dL (7-21) 02/09/18 06:30 Creatinine 0.7 mg/dl (0.7-1.2) 02/09/18 06:30 Est GFR ( Amer) > 60 02/09/18 06:30 Est GFR (Non-Af Amer) > 60 02/09/18 06:30 Random Glucose 93 mg/dL (70-110) 02/09/18 06:30 Calcium 7.2 mg/dL (8.4-10.5) L 02/09/18 06:30 Phosphorus 3.4 mg/dL (2.5-4.5) 02/09/18 06:30 Magnesium 1.5 mg/dL (1.7-2.2) L 02/09/18 06:30 Total Bilirubin < 0.1 mg/dL (0.2-1.3) L 02/09/18 06:30 AST 20 U/L (14-36) 02/09/18 06:30 ALT 19 U/L (7-56) 02/09/18 06:30 Alkaline Phosphatase 45 U/L (38-126) 02/09/18 06:30 Total Creatine Kinase 97 U/L (35-230) 02/06/18 15:17 Total Protein 6.1 g/dL (5.8-8.3) 02/09/18 06:30 Albumin 3.1 g/dL (3.0-4.8) 02/09/18 06:30 Globulin 3.0 gm/dL 02/09/18 06:30 Albumin/Globulin Ratio 1.1 (1.1-1.8) 02/09/18 06:30 25-OH Vitamin D Total 19.4 NG/ML (30.0-100.0) L 02/06/18 20:33 Free T4 2.18 ng/dL (0.78-2.19) 02/07/18 07:30 Thyroxine (T4) 9.2 ug/dL (5.5-11.0) 02/09/18 06:30 Free T3 pg/mL 5.57 pg/mL (2.77-5.27) H 02/06/18 20:33 Thyroglobulin, Quant 1.7 ng/mL (2.8-40.9) L 02/07/18 05:00 TSH 3rd Generation 0.09 mIU/mL (0.46-4.68) L 02/09/18 06:30 PTH w/Ion &Tot Calcium 61 pg/mL (14-64) 02/07/18 05:00 Cortisol AM Sample 6.9 ug/dL (4.46-22.7) 02/07/18 05:00 ACTH 13 pg/mL (6-50) 02/07/18 05:00 Urine Color Yellow (YELLOW) 02/06/18 15:20 Urine Appearance Sl cloudy (CLEAR) 02/06/18 15:20 Urine pH 6.5 (4.7-8.0) 02/06/18 15:20 Ur Specific [place] 1.015 (1.005-1.035) 02/06/18 15:20 Urine Protein Trace mg/dL (<30 mg/dL) H 02/06/18 15:20 Urine Glucose (UA) Negative mg/dL (NEGATIVE) 02/06/18 15:20 Urine Ketones Negative mg/dL (NEGATIVE) 02/06/18 15:20 Urine Blood Negative (NEGATIVE) 02/06/18 15:20 Urine Nitrate Negative (NEGATIVE) 02/06/18 15:20 Urine Bilirubin Negative (NEGATIVE) 02/06/18 15:20 Urine Urobilinogen 0.2 E.U./dL (<1 E.U./dL) 02/06/18 15:20 Ur Leukocyte Esterase Trace Fredy/uL (NEGATIVE) H 02/06/18 15:20 Urine RBC Negative /hpf (0-2) 02/06/18 15:20 Urine WBC 15 - 20 /hpf (0-6) 02/06/18 15:20 Ur Epithelial Cells 10 - 12 /hpf (0-5) 02/06/18 15:20 Urine Bacteria Mod (NEG) 02/06/18 15:20 Hyaline Casts 2 - 5 /hpf 02/06/18 15:20 Coarse Granular Casts Small /hpf (0-2) H 02/06/18 15:20 Ur Random Creatinine 117 mg/dL 02/06/18 22:30 Ur Random Sodium 16 meq/L 02/06/18 20:33 Ur Random Potassium 36.0 meq/L 02/06/18 20:33 Thyroglobulin Antibody <1 IU/mL (< OR = 1) 02/07/18 05:00 - Hospital Course Hospital Course: Paul Godwin, PGY1 Discharge Summary for Dr. Landeros Hospital Admission: Patient is a 57 year old female with PMH of HIV with CD4 count in the 500s per patient, COPD, HTN, chronic back pain, thyroid cancer (s/p radiation therapy on 12/01/17) presenting to the ED on 02/06 for bilateral leg cramping. Patient states she has a history of chronic leg cramping but has been worse over the past 2 weeks. Cramping wakes patient up in the night and is described as intermittent pain rated 9/10 that begins in the feet and progressed into the hips. She has chronic back pain for which she takes Percocet and flexeril which has not been alleviating the cramping. Patient admits to associated symptoms of numbness/tingling and minimal swelling. Lower extremity US was negative for DVT. In the ED, patient noted to have potassium of 2.9, calcium of 6.5 and magnesium of 1.4. Patient was given repletion for electrolyte abnormalities. EKG did not show any acute ST or T wave changes. Patient was admitted to med/surg. Patient was evaluated by the hospitalist team. Patient was admitted for muscle cramps 2/ 2 electrolyte abnormalities and hypocalcemia possibly due to surgical hypoparathyroidism. Patient has a TSH .08 with T4 2.87. Endocrinology was consulted. Patient was noted to be on a high dose for her levothyroxine for management of thyroid carcinoma. Patient has been clinically stable during hospital course with vital signs stable. Most recent labs showed a K of 3.5, Calcium 7.2, and Magnesium of 1.5. Patient is stable for discharge and outpatient follow up with both PMD and endocrinology. Upon Discharge: Patient has been cleared by endocrinology for discharge. Patient will follow up with her PMD and Pressure Control Supervisor (Dr. Gary Olivares) after discharge. Patient will continue with home meds but levothyroxine dose was adjusted. Patient will also be discharged on supplementation for calcium, potassium, and magnesium. Case was discussed and reviewed with Attending physician, Dr. Landeros. Discharge Exam - Head Exam Head Exam: ATRAUMATIC, NORMAL INSPECTION, NORMOCEPHALIC - Eye Exam Eye Exam: Conjunctival injection Pupil Exam: NORMAL ACCOMODATION, PERRL - ENT Exam ENT Exam: Mucous Membranes Moist, Normal Exam - Neck Exam Neck exam: Full Rom - Respiratory Exam Respiratory Exam: Clear to PA & Lateral, NORMAL BREATHING PATTERN, UNREMARKABLE. absent: Rales, Rhonchi, Wheezes, Respiratory Distress - Cardiovascular Exam Cardiovascular Exam: REGULAR RHYTHM, +S1, +S2 - GI/Abdominal Exam GI & Abdominal Exam: Normal Bowel Sounds - Extremities Exam Extremities exam: full ROM, normal capillary refill, normal inspection, pedal pulses present - Back Exam Back exam: NORMAL INSPECTION - Neurological Exam Neurological exam: Alert, Normal Gait, Oriented x3 - Psychiatric Exam Psychiatric exam: Normal Affect, Normal Mood - Skin Skin Exam: Dry, Intact, Normal Color, Warm Discharge Plan - Discharge Medications Prescriptions: Calcitriol 0.5 mcg PO DAILY #5 capsule Calcium Gluconate 600 gm MC BID #10 powder Levothyroxine Sodium [Synthroid] 300 mcg PO DAILY #14 tablet Magnesium Oxide [Magnesium] 400 mg PO TID #15 capsule Potassium Chloride [K-Dur 20] 40 meq PO DAILY #5 tab - Follow Up Plan Condition: GOOD Disposition: HOME/ ROUTINE Instructions: Hypothyroidism (Underactive Thyroid), Hypoparathyroidism, Hypokalemia (DC), Urinary Tract Infection in Women (DC) Additional Instructions: 1. Please follow up with your PMD (Dr. Chandra) within 3-4 days of discharge. Please get blood work drawn at your PMD's office to check your Magnesium, Potassium and Calcium levels. 2. Please follow up with your java architect (Dr. Gary Olivares) within 1 week of discharge. 3. Please continue your home medications as prescribed. However, your levothyroxin dose was changed (see below). 4. Please take these new medications as prescribed: Calcitriol 0.5 mcg daily for 5 days, Calcium Gluconate 600 mg twice a day for 5 days, Levothyroxine 300 mcg once a day for 14 days, Magnesium oxide 400 mg three times a day for 5 days , and Potassium Chloride 40 meq daily for 5 days. 5. Please return to the ED if your symptoms reoccur. <Wayne Landeros - Last Filed: 02/10/18 07:52> Provider - Provider Date of Admission: 02/08/18 07:27 Attending physician: Wayne Landeros MD Hospital Course - Lab Results Lab Results: Most Recent Lab Values WBC 4.4 10^3/ul (4.5-11.0) L D 02/09/18 06:30 RBC 3.23 10^6/uL (3.5-6.1) L 02/09/18 06:30 Hgb 8.5 g/dL (12.0-16.0) L 02/09/18 06:30 Hct 27.2 % (36.0-48.0) L 02/09/18 06:30 MCV 84.2 fl (80.0-105.0) 02/09/18 06:30 MCH 26.3 pg (25.0-35.0) 02/09/18 06:30 MCHC 31.3 g/dl (31.0-37.0) 02/09/18 06:30 RDW 13.9 % (11.5-14.5) 02/09/18 06:30 Plt Count 291 10^3/uL (120.0-450.0) 02/09/18 06:30 MPV 9.9 fl (7.0-11.0) 02/09/18 06:30 Gran % 59.6 % (50.0-68.0) 02/09/18 06:30 Lymph % (Auto) 25.3 % (22.0-35.0) 02/09/18 06:30 Coke % (Auto) 9.7 % (1.0-6.0) H 02/09/18 06:30 Eos % (Auto) 4.5 % (1.5-5.0) 02/09/18 06:30 Baso % (Auto) 0.9 % (0.0-3.0) 02/09/18 06:30 Gran # 2.63 (1.4-6.5) 02/09/18 06:30 Lymph # (Auto) 1.1 (1.2-3.4) L 02/09/18 06:30 Coke # (Auto) 0.4 (0.1-0.6) 02/09/18 06:30 Eos # (Auto) 0.2 (0.0-0.7) 02/09/18 06:30 Baso # (Auto) 0.04 K/mm3 (0.0-2.0) 02/09/18 06:30 Sodium 139 mmol/L (132-148) 02/09/18 06:30 Potassium 3.5 mmol/L (3.6-5.0) L 02/09/18 06:30 Chloride 101 mmol/L (98-107) 02/09/18 06:30 Carbon Dioxide 36 mmol/L (21-33) H 02/09/18 06:30 Anion Gap 6 (10-20) L 02/09/18 06:30 BUN 12 mg/dL (7-21) 02/09/18 06:30 Creatinine 0.7 mg/dl (0.7-1.2) 02/09/18 06:30 Est GFR ( Amer) > 60 02/09/18 06:30 Est GFR (Non-Af Amer) > 60 02/09/18 06:30 Random Glucose 93 mg/dL (70-110) 02/09/18 06:30 Calcium 7.2 mg/dL (8.4-10.5) L 02/09/18 06:30 Phosphorus 3.4 mg/dL (2.5-4.5) 02/09/18 06:30 Magnesium 1.5 mg/dL (1.7-2.2) L 02/09/18 06:30 Total Bilirubin < 0.1 mg/dL (0.2-1.3) L 02/09/18 06:30 AST 20 U/L (14-36) 02/09/18 06:30 ALT 19 U/L (7-56) 02/09/18 06:30 Alkaline Phosphatase 45 U/L (38-126) 02/09/18 06:30 Total Creatine Kinase 97 U/L (35-230) 02/06/18 15:17 Total Protein 6.1 g/dL (5.8-8.3) 02/09/18 06:30 Albumin 3.1 g/dL (3.0-4.8) 02/09/18 06:30 Globulin 3.0 gm/dL 02/09/18 06:30 Albumin/Globulin Ratio 1.1 (1.1-1.8) 02/09/18 06:30 Aldosterone 7 ng/dL 02/07/18 06:00 25-OH Vitamin D Total 19.4 NG/ML (30.0-100.0) L 02/06/18 20:33 Free T4 2.18 ng/dL (0.78-2.19) 02/07/18 07:30 Thyroxine (T4) 9.2 ug/dL (5.5-11.0) 02/09/18 06:30 Free T3 pg/mL 5.57 pg/mL (2.77-5.27) H 02/06/18 20:33 Thyroglobulin, Quant 1.7 ng/mL (2.8-40.9) L 02/07/18 05:00 TSH 3rd Generation 0.09 mIU/mL (0.46-4.68) L 02/09/18 06:30 Calcium (PTH Intact) 6.8 mg/dL (8.6-10.4) L 02/07/18 05:00 PTH w/Ion &Tot Calcium 61 pg/mL (14-64) 02/07/18 05:00 Cortisol AM Sample 6.9 ug/dL (4.46-22.7) 02/07/18 05:00 ACTH 13 pg/mL (6-50) 02/07/18 05:00 Urine Color Yellow (YELLOW) 02/06/18 15:20 Urine Appearance Sl cloudy (CLEAR) 02/06/18 15:20 Urine pH 6.5 (4.7-8.0) 02/06/18 15:20 Ur Specific [place] 1.015 (1.005-1.035) 02/06/18 15:20 Urine Protein Trace mg/dL (<30 mg/dL) H 02/06/18 15:20 Urine Glucose (UA) Negative mg/dL (NEGATIVE) 02/06/18 15:20 Urine Ketones Negative mg/dL (NEGATIVE) 02/06/18 15:20 Urine Blood Negative (NEGATIVE) 02/06/18 15:20 Urine Nitrate Negative (NEGATIVE) 02/06/18 15:20 Urine Bilirubin Negative (NEGATIVE) 02/06/18 15:20 Urine Urobilinogen 0.2 E.U./dL (<1 E.U./dL) 02/06/18 15:20 Ur Leukocyte Esterase Trace Fredy/uL (NEGATIVE) H 02/06/18 15:20 Urine RBC Negative /hpf (0-2) 02/06/18 15:20 Urine WBC 15 - 20 /hpf (0-6) 02/06/18 15:20 Ur Epithelial Cells 10 - 12 /hpf (0-5) 02/06/18 15:20 Urine Bacteria Mod (NEG) 02/06/18 15:20 Hyaline Casts 2 - 5 /hpf 02/06/18 15:20 Coarse Granular Casts Small /hpf (0-2) H 02/06/18 15:20 Ur Random Creatinine 117 mg/dL 02/06/18 22:30 Ur Random Sodium 16 meq/L 02/06/18 20:33 Ur Random Potassium 36.0 meq/L 02/06/18 20:33 Thyroglobulin Antibody <1 IU/mL (< OR = 1) 02/07/18 05:00 Attending/Attestation - Attestation I have personally seen and examined this patient.: Yes I have fully participated in the care of the patient.: Yes I have reviewed all pertinent clinical information, including history, physical exam and plan: Yes Notes (Text): 02/10/18 07:51 Attending note; Patient seen and examined with resident. Cramping improved significantly. Ambulating without difficulty. Denies any fevers, chills. Denies any nausea, vomiting. Denies any chest pain, shortness of breath. Tolerating diet well. Patient is a 57 year old female with PMH of HIV (CD4 count in the 500s as per patient), COPD, HTN, chronic back pain, thyroid cancer (s/p radiation therapy on 12/01/17), on Synthroid is admitted with bilateral leg cramping. Patient is admitted for severe hypokalemia, hypomagnesemia and hypocalcemia. Hypokalemia; started on IV and po potassium supplementation. improving. Hypomagnesemia; continue IV magnesium.Improved. Hypocalcemia; continue IV calcium gluconate. Endocrinology evaluation with Dr. schultz appreciated. Patient will be discharged home with by po potassium, magnesium, calcitriol and calcium supplementation. Patient will follow up with her primary java architect Dr. Mendoza on Wednesday. Continue Synthroid. Continue electrolyte supplementation. HIV; continue genvoya. Follow-up with Dr. Baxter as outpatient. Upon discharge the patient will follow-up with PMD DR. Chandra. The diagnosis, follow-up plan discussed in detail. Dietary education given.
[2018-02-10] MEDS ORDERED: Levothyroxine 100 MCG TAB PO SCH (06:30)
[2018-02-10 10:24] LABS: ALDO/PRA RATIO 1.5 Ratio (0.9-28.9)
== END 2018-02-09 21:54 | disposition home or self-care (01) | DRG 714 ==
LOC: ED 14:04 → ERH 17:59 → 5RNO 20:59 → OBSVTOIN 02-08 07:27
PROVIDERS: ADMIT Internal Medicine; ATTEND Internal Medicine
PROC: 3E0F7GC Introduction of Other Therapeutic Substance into Respiratory Tract, Via Natural or Artificial Opening (ICD-10-PCS; principal; 2018-02-07)
DX: N17.9 Acute kidney failure, unspecified (principal); E87.6 Hypokalemia; B20 Human immunodeficiency virus [HIV] disease; J44.9 Chronic obstructive pulmonary disease, unspecified; N39.0 Urinary tract infection, site not specified; E89.0 Postprocedural hypothyroidism; I10 Essential (primary) hypertension; G89.29 Other chronic pain; E83.42 Hypomagnesemia; E55.9 Vitamin D deficiency, unspecified; D64.9 Anemia, unspecified; E78.5 Hyperlipidemia, unspecified; Z85.850 Personal history of malignant neoplasm of thyroid; Z92.3 Personal history of irradiation; Z98.84 Bariatric surgery status; Z87.891 Personal history of nicotine dependence